=== PATIENT | male | born 1980 | race Caucasian/White ===

== ENCOUNTER 2017-11-26 15:01 | Emergency (ER) | payer OTHER ==
[~2017-11-26] VITALS: Ht 177.8 cm; Wt 74.8 kg
[~2017-11-26 15:01] MED LIST: FLEXERIL PO; NAPROSYN500 MG PO; NORCO 5-325 TA1 EACH PO; PREDNISONE 20 M20 M1 PO; PRILOSEC40 MG PO
[2017-11-26] MEDS ORDERED: FLEXERIL PO (15:09)
[2017-11-26] MEDS ORDERED: PREVACID30 MG PO (15:10)
[2017-11-26] MEDS ORDERED: GABAPENTIN 100100 MG PO (15:10)
[2017-11-26 15:27] LABS: ABSOLUTE EOSINOPHILS 0.2 thou/uL (0.0-0.7); ABSOLUTE LYMPHOCYTES 2.3 thou/uL (0.8-5.3); ABSOLUTE MONOCYTES 0.6 thou/uL (0.0-1.2); ABSOLUTE NEUTROPHILS 4.1 thou/uL (1.6-8.1); BASOPHILS 0.5 %; EOSINOPHILS 2.4 %; HEMATOCRIT 44.8 % (42.0-52.0); HEMOGLOBIN 15.1 gm/dL (14.0-18.0); LYMPHOCYTES 31.9 %; MCH 29.4 pg (26.0-34.0); MCHC 33.6 g/dL (28.0-37.0); MCV 87.4 fL (80.0-100.0); MONOCYTES 7.9 %; MPV 7.9 fl. (7.2-11.1); NUCLEATED RBCS 0 /100WBC; PLATELET COUNT* 304 thou/uL (150-400); POLYS 57.3 %; RBC 5.13 mil/uL (4.50-6.00); RDW-CV 13.6 % (10.5-14.5); WBC 7.1 thou/uL (4.0-11.0)
[2017-11-26 15:37] LABS: ANION GAP 8 mmol/L (7-16); BUN 13 mg/dL (7-18); CHLORIDE 102 mmol/L (98-107); CO2 31 mmol/L (21-32); CREATININE 1.2 mg/dL (0.6-1.3); GLUCOSE 138 mg/dL (70-99); POTASSIUM 3.7 mmol/L (3.5-5.1); SODIUM 141 mmol/L (136-145)
[2017-11-26 15:44] LABS: ALBUMIN 4.2 g/dL (3.4-5.0); ALKALINE PHOSPHATASE 92 U/L (46-116); SGOT 19 U/L (15-37); SGPT 24 U/L (30-65); TOTAL BILIRUBIN 0.4 mg/dL (<0.1-1.0); TOTAL PROTEIN 7.7 g/dL (6.4-8.2); TROPONIN-I LEVEL <0.06 ng/mL (<0.06)
[2017-11-26] MEDS ORDERED: NAPROSYN500 MG PO (15:45)
[2017-11-26 16:39] VITALS: BP 109/58
--- NOTE | 2017-11-27 14:01 | EKG ---
[place] [address] ELECTROCARDIOGRAM REPORT Name: ARTEMIO CHACKO Room: [facility]#: [id number] Admission: 11/26/17 Attend Phys: Discharge: 11/26/17 Date of : 80 Report #: [id number] THIS REPORT FOR: //name// [facility] ED Test Date: 2017-11-26 Test Time: 15:05:37 Pat Name: ARTEMIO CHACKO Department: Room: Gender: Director Radiation Oncology: Francois SUBRAMANIAN : 1980 Requested By: Kathy Galarza Order Number: [id number] MD: Artemio Mcmahan Measurements Intervals [place] Rate: 93 P: 80 HI: 142 QRS: 96 QRSD: 108 T: 28 QT: 355 QTc: 442 Interpretive Statements Sinus rhythm Borderline right axis deviation No previous ECG available for comparison Electronically Signed On 11-27-2017 14:01:11 CDT by Artemio Mcmahan [email or web address] <ELECTRONICALLY SIGNED> By: Artemio Mcmahan MD, [facility] 11/27/17 1401 1505 1505 Artemio Mcmahan MD, [facility] /EPI
== END 2017-11-26 16:40 | disposition home or self-care (01) ==
LOC: M.ERS 15:01
PROVIDERS: Nurse Practitioner Family
DX: M94.0 Chondrocostal junction syndrome [Tietze] (principal); K21.9 Gastro-esophageal reflux disease without esophagitis; G89.29 Other chronic pain; M54.5 Low back pain; F17.210 Nicotine dependence, cigarettes, uncomplicated

== ENCOUNTER → 2018-02-26 | Outpatient (CLI) | payer OTHER ==
[~2018-02-26] MED LIST changes: +GABAPENTIN 100100 MG PO; +PREVACID30 MG PO
== END ==
LOC: M.ULTRA 14:53
DX: I86.1 Scrotal varices (principal); N43.40 Spermatocele of epididymis, unspecified

== ENCOUNTER 2018-11-20 16:11 | Emergency (ER) | payer OTHER ==
[~2018-11-20] VITALS: Ht 177.8 cm; Wt 76.2 kg
[2018-11-20] MEDS ORDERED: GARAMYCIN5 ML OPHTHALMIC (17:35)
[2018-11-20 17:46] VITALS: BP 122/76
== END 2018-11-20 17:47 | disposition home or self-care (01) ==
LOC: M.ERS 16:11
DX: T15.92XA Foreign body on external eye, part unspecified, left eye, initial encounter (principal); K21.9 Gastro-esophageal reflux disease without esophagitis; M54.9 Dorsalgia, unspecified; G89.29 Other chronic pain; F17.200 Nicotine dependence, unspecified, uncomplicated; X58.XXXA Exposure to other specified factors, initial encounter; Y93.89 Activity, other specified; Y92.89 Other specified places as the place of occurrence of the external cause; Y99.8 Other external cause status

== ENCOUNTER 2019-02-07 03:39 | Emergency (ER) | payer OTHER ==
[~2019-02-07] VITALS: Ht 177.8 cm; Wt 79.4 kg
[~2019-02-07 03:39] MED LIST changes: +GARAMYCIN5 ML OPHTHALMIC
[2019-02-07] MEDS ORDERED: IBUPROFEN 200200 M1 PO (03:48)
[2019-02-07] MEDS ORDERED: CEFDINIR300 MG PO (04:02)
[2019-02-07] MEDS ORDERED: NORCO 5-325 TA1 EAC1 PO (04:02)
[2019-02-07 04:11] VITALS: BP 135/81
== END 2019-02-07 04:11 | disposition home or self-care (01) ==
LOC: M.ERS 03:39
DX: H66.91 Otitis media, unspecified, right ear (principal); K21.9 Gastro-esophageal reflux disease without esophagitis; G89.29 Other chronic pain; M54.5 Low back pain; Z98.890 Other specified postprocedural states